=== PATIENT | female | born 2000 | race Caucasian/White ===

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

== ENCOUNTER 2021-07-19 21:30 | Emergency (ER) | payer BC ==
[2021-07-19 21:36] VITALS: BP 138/90; PULSE 122; RESP 20; TEMP 98.2
[2021-07-19] MEDS ORDERED: ACET/COD 300 MG/30 MG STARTER PACK 6 TAB BTL PO STA (21:43)
--- NOTE | 2021-07-19 21:49 | ED ---
Upper Extremity HPI - General Chief Complaint: Extremity Injury, Upper Stated Complaint: Possible L Arm dislocation Time Seen by Provider: 07/19/21 21:37 Source: patient Mode of arrival: ambulatory Limitations: no limitations - History of Present Illness Initial Comments: 21 year-old female patient presents to the emergency department for evaluation of left elbow pain. States she was using her arm like normal and heard a crack. States she had onset of pain to the posterior elbow and up into her bicep. States it hurts to bend or move the arm. She is reporting some She does have history of ORIF to this elbow. Denies any increase in physical activity or lifting with the arm. She is currently on keflex for labial abscess. Denies taking anything for pain. Patient denies any headache, neck pain, back pain, chest pain, shortness of breath, dizziness, weakness, abdominal pain, nausea, vomiting, or difficulties with bowel movements or urination. - Related Data Home Medications Medication Instructions Recorded Confirmed Cephalexin [Keflex] 500 mg PO BID 07/19/21 07/19/21 Loryna 3mg-0.02mg Tablet 1 tab PO DAILY 07/19/21 07/19/21 Pantoprazole Sodium 40 mg PO DAILY 07/19/21 07/19/21 Allergies Allergy/AdvReac Type Severity Reaction Status Date / Time Sulfa (Sulfonamide Allergy Anaphylaxis Verified 07/19/21 22:03 Antibiotics) Review of Systems ROS Statement: Those systems with pertinent positive or pertinent negative responses have been documented in the HPI. ROS Other: All systems not noted in ROS Statement are negative. Past Medical History Past Medical History: Asthma Additional Past Medical History / Comment(s): migraines History of Any Multi-Drug Resistant Organisms: None Reported Past Surgical History: Cholecystectomy, Orthopedic Surgery Additional Past Surgical History / Comment(s): lt elbow Past Psychological History: Anxiety, Depression Smoking Status: Current every day smoker Past Alcohol Use History: Occasional Past Drug Use History: None Reported General Exam Limitations: no limitations General appearance: alert, in no apparent distress, other (This is a well-devel oped, well-nourished adult female patient in no acute distress. Vital signs upon presentation temperature 98.2F, pulse 122, respirations 20, blood pressure 138/90, pulse ox 100% on room air.) Respiratory exam: Present: normal lung sounds bilaterally. Absent: respiratory distress, wheezes, rales, rhonchi, stridor Cardiovascular Exam: Present: regular rate, normal rhythm, normal heart sounds. Absent: systolic murmur, diastolic murmur, rubs, gallop, clicks Extremities exam: Present: normal inspection, full ROM, tenderness (Left posterior elbow, left bicep), normal capillary refill, other (Skin the left arm is pink, warm, dry. Hand is cool to touch. Radial pulses 2+.). Absent: pedal edema, joint swelling, calf tenderness Neurological exam: Present: alert, oriented X3, CN II-XII intact Psychiatric exam: Present: normal affect, normal mood Skin exam: Present: warm, dry, intact, normal color. Absent: rash Course Vital Signs 07/19/21 21:33 Temperature 98.2 F Pulse Rate 122 H Respiratory 20 Rate Blood Pressure 138/90 O2 Sat by Pulse 100 Oximetry Medical Decision Making - Medical Decision Making 21-year-old female patient presents to the emergency department today for evaluation of left elbow pain. No trauma. Physical examination is unremarkable. Radial pulses 2+. Skins intact. No swelling. X-ray was negat aurelia, showed no evidence for fracture or joint effusion. We did discuss possibility of nerve injury. She is instructed to follow-up with the primary care physician clinical account specialist for further evaluation as soon as possible. Return parameters were discussed in detail. She verbalizes understanding and agrees with this plan. Case discussed with my attending Dr. Frias. - Radiology Data Radiology results: report reviewed, image reviewed 3 views of the left elbow are obtained. Report was reviewed in its entirety. Impression by Dr. Heml shows negative left elbow exam. Disposition Clinical Impression: Left elbow pain Disposition: HOME SELF-CARE Condition: Good Instructions (If sedation given, give patient instructions): Arthralgia (ED) Additional Instructions: Rest and ice the elbow. Use kalen wrap for comfort and support. Follow up with the clinical account specialist for further evaluation as soon as possible. Return for any new, worsening, or concerning symptoms. Is patient prescribed a controlled substance at d/c from ED?: No Referrals: Dave Andrade MD [Primary Care Provider] - 1-2 days Nayan Jones MD [STAFF PHYSICIAN] - 1-2 days Time of Disposition: 22:05
--- NOTE | 2021-07-19 22:03 | XR ---
EXAMINATION TYPE: XR elbow complete LT DATE OF EXAM: 07/19/2021 COMPARISON: NONE HISTORY: Elbow pain TECHNIQUE: 3 views FINDINGS: I see no fracture nor dislocation. Joint spaces are normal. There is no sign of elbow joint effusion. IMPRESSION: Negative left elbow exam.
== END 2021-07-19 22:27 | disposition home or self-care (01) ==
LOC: EC 21:30
DX: M25.522 Pain in left elbow (principal); J45.909 Unspecified asthma, uncomplicated; F41.9 Anxiety disorder, unspecified; F32.9 Major depressive disorder, single episode, unspecified; F17.200 Nicotine dependence, unspecified, uncomplicated; Z88.2 Allergy status to sulfonamides; Z90.49 Acquired absence of other specified parts of digestive tract
CPT/HCPCS: 99283